=== PATIENT | male | born 1950 | race Caucasian/White ===

== ENCOUNTER → 2017-05-04 | Day surgery (SDC) | payer OTHER ==
[~2017-05-04] MED LIST: ACETAMINOPHEN325 MG PO; ASPIRIN EC81 M1 PO; COATED ASPIRIN325 M1 PO; LISINOPRIL20 MG PO; LORTAB 10-3251 EACH PO; ZOCOR PO
--- NOTE | ~2017-05-04 | OR ---
Unit #: [id number] #: [id number] Patient: RICHELLE GUERRERO SR [id number] [address] [place], [place] [address] [id number] MR#: [id number] NAME: RICHELLE GUERRERO SR ROOM: Date of Procedure: 05/04/2017 Admission Date: 05/04/2017 Surgeon: Albert Delvalle Jr., M.D. : 1950 Attending Physician: Albert Delvalle Jr., M.D. Primary Care Physician: Tahir De Anda Jr., M.D. OPERATIVE REPORT INDICATIONS FOR PROCEDURE The patient is a 67-year-old white male with a known past history of colon polyps. He has had no scope for 5 to 6 years according to him. He is brought in at this time for colonoscopy at his request. He has had no change in bowel habits. No rectal bleeding. PREOPERATIVE DIAGNOSIS Past history of colon polyps, rule out recurrence. POSTOPERATIVE DIAGNOSIS Normal colonoscopy to the cecum. ANESTHESIA MAC anesthesia. PROCEDURE PERFORMED Flexible colonoscopy to the cecum. DESCRIPTION OF PROCEDURE The patient was positioned in Catherine position with left side down. After being given MAC anesthesia, digital rectal examination was performed, which revealed no palpable mass or tenderness. No blood or stool within the rectal ampulla. The prostate was normal by palpation. The Olympus colonoscope was advanced through the anal canal up the rectum and retroflexed down to the area of the anorectal region. There was no evidence of any fissures. No significant internal hemorrhoids. The scope was then straightened and advanced up in the rectosigmoid, in the sigmoid and descending colon areas, around the splenic flexure and the transverse colon, around hepatic flexure and ascending colon, down in the area of the cecum. The light from the tip of the scope could be seen transilluminating through the right lower quadrant abdominal wall area. Multiple attempts in advancing the scope up the distal ileum were unsuccessful. The scope was slowly removed. There were no tumors, polyps, cancer, or AVMs. No evidence of any colitis, diverticulosis, or diverticulitis. The caliber of the colon appeared normal throughout. The scope was removed. The patient tolerated the procedure well and discharged in satisfactory condition. Dictated by... Albert Delvalle Jr., M.D. Unit #: [id number] #: [id number] Patient: CESAR ,RICHELLE ODONNELL/ross TD: 05/04/2017 11:06 JOB #: [id number] OPERATIVE REPORT Page 1 of 1 X Albert Delvalle MD PROCEDURE OPERATIVE NOTE
== END | disposition home or self-care (01) ==
LOC: COPS 05:21
DX: Z12.11 Encounter for screening for malignant neoplasm of colon (principal); Z86.010 Personal history of colon polyps; Z79.82 Long term (current) use of aspirin; Z79.899 Other long term (current) drug therapy